=== PATIENT | male | born 1990 | race Caucasian/White ===

== ENCOUNTER 2023-10-05 10:35 | Emergency (ER) | payer OTHER ==
[2023-10-05] MEDS ORDERED: SODIUM CHLORIDE 0.9% 1,000 ML IV STA (11:09)
[2023-10-05] MEDS ORDERED: PANTOPRAZOLE 40 MG/10 ML VIAL IVP STA (11:09)
[2023-10-05] MEDS ORDERED: ONDANSETRON 4 MG/2 ML VIAL IVP STA (11:09)
[2023-10-05 11:29] VITALS: RESP 18; TEMP 97.9
[2023-10-05 11:40] LABS: Basophils % (A) 0 %; Eosinophils # (A) 0.3 k/uL (0-0.7); Eosinophils % (A) 4 %; HCT 39.9 % (39.0-53.0); HGB 13.3 gm/dL (13.0-17.5); Lymphocytes # (A) 1.1 k/uL (1.0-4.8); Lymphocytes % (A) 15 %; MCH 27.5 pg (25.0-35.0); MCHC 33.3 g/dL (31.0-37.0); MCV 82.5 fL (80.0-100.0); Monocytes # (A) 0.3 k/uL (0-1.0); Monocytes % (A) 4 %; Neutrophils # (A) 5.5 k/uL (1.3-7.7); Neutrophils % (A) 75 %; Platelet Count 488 k/uL (150-450); RBC 4.83 m/uL (4.30-5.90); RDW 14.2 % (11.5-15.5); WBC 7.3 k/uL (3.8-10.6)
[2023-10-05 11:55] LABS: Partial Thromboplastin Time 22.9 sec (22.0-30.0)
[2023-10-05 12:04] LABS: ALT 13 U/L (4-49); AST 20 U/L (17-59); African American GFR (CKD) >90 (>60 ml/min/1.73 sqM); Albumin 3.6 g/dL (3.5-5.0); Alkaline Phosphatase 88 U/L (38-126); Amylase 33 U/L (30-110); Anion Gap 13 mmol/L; Blood Urea Nitrogen 6 mg/dL (9-20); Calcium 8.9 mg/dL (8.4-10.2); Carbon Dioxide 26 mmol/L (22-30); Chloride 99 mmol/L (98-107); Glucose 82 mg/dL (74-99); Lipase 91 U/L (23-300); Non-African American GFR(CKD) >90 (>60 ml/min/1.73 sqM); Potassium 2.9 mmol/L (3.5-5.1); Sodium 138 mmol/L (137-145); Total Bilirubin 0.7 mg/dL (0.2-1.3); Total Protein 7.3 g/dL (6.3-8.2)
--- NOTE | 2023-10-05 12:25 | CT ---
EXAMINATION TYPE: CT abdomen pelvis w con DATE OF EXAM: 10/05/2023 COMPARISON: NONE HISTORY: 33-year-old male, abdominal pain, diarrhea, wt loss TECHNIQUE: Contiguous axial scanning of the abdomen and pelvis following administration of 100 ml Iso eileen 300 IV contrast. Delayed images through the kidneys and coronal/sagittal reconstructions perform ed. CT DLP: 846.2 mGycm Automated exposure control for dose reduction was used. FINDINGS: LUNG BASES: No significant abnormality is appreciated. LIVER/GB: Liver border line enlarged at 17.8 cm with diffuse low-attenuation. No focal lesion. Portal venous system is patent. No biliary ductal dilatation. Gallbladder within normal limits. PANCREAS: No significant abnormality is seen. SPLEEN: No significant abnormality is seen. ADRENALS: No significant abnormality is seen. KIDNEYS: No significant abnormality is seen. BOWEL: Mild circumferential wall thickening distal esophagus. There is long segment distal enteritis involving the ileum. There is mucosal breathing and wall thickening up to 5 mm with engorgement of t he mesenteric vessels. Mild wall thickening of the cecum and fluid within the right hemicolon. LYMPH NODES: Borderline to mildly enlarged lymph nodes clustered in the left mid abdominal mesentery measuring up to 1 cm short axis with mild malina mesentery. Additional lymph nodes clustered right mid to lower abdominal mesentery measuring up to 1.3 cm, coronal images 43 and 44. OTHER: No significant abnormality is seen. PELVIS: Prostate gland mildly enlarged at 4.5 cm. Bladder urine distended. No abnormal fluid collecti on in the pelvis. BONES: Bilateral L5 pars defects with grade 1 anterolisthesis at L5-S1. Mild degenerative disc diseas e here. IMPRESSION: 1. LONG SEGMENT MODERATE DISTAL ILEITIS WITH INFLAMMATORY BOWEL WALL THICKENING UP TO 5 MM. SOME CONT IGUOUS INFLAMMATORY BOWEL WALL THICKENING OF THE CECUM WELL. CORRELATE FOR INFECTIOUS ETIOLOGY OR INFLAMMATORY BOWEL DISEASE. NO ABSCESS OR FREE AIR. 2. SCATTERED BORDERLINE AND MILDLY ENLARGED MESENTERIC LYMPH NODES. THERE IS SOME ASSOCIATED MALINA ME SENTERY. FINDINGS MAY BE REACTIVE TO THE ENTERITIS OR COULD REFLECT A CONCURRENT MESENTERIC PANNICULI TIS. 3. Hepatic steatosis. Appropriate clinical management advised. Possible mild distal esophagitis. 4. Bilateral L5 pars defects and grade 1 anterolisthesis L5-S1.
[2023-10-05] MEDS ORDERED: POTASSIUM CHLORIDE ER 20 MEQ TAB.ER PO STA (12:50)
[2023-10-05] MEDS ORDERED: AMOXIC-POT CLAV 875-125MG 1 EACH TAB PO STA (12:51)
--- NOTE | 2023-10-05 13:02 | ED ---
General Adult HPI - General Chief complaint: Recheck/Abnormal Lab/Rx Stated complaint: Nausea,Weakness Time Seen by Provider: 10/05/23 11:01 Source: patient, RN notes reviewed, old records reviewed Mode of arrival: ambulatory Limitations: no limitations - History of Present Illness Initial comments: Patient is a 33-year-old male presents emergency Department complaining of near syncopal episode. States he was about to have a bowel movement at work when he extends to near syncopal episode while in the toilet. States he did not fully pass out. States his vision began to go black however past. States this has happened previously. Has been having diarrhea that is nonbloody for the last 3 weeks. Unknown source. Intermittent abdominal discomfort. Denies chest pain or shortness breath. No known fevers. Denies any nausea or emesis. No history of abdominal surgeries. No history of colonoscopy. No urinary complaints. Presents for further evaluation at this time. - Related Data Previous Rx's Medication Instructions Recorded Amoxic-Pot Clav 875-125Mg 1 tab PO Q12HR 7 Days #14 tab 10/05/23 [Augmentin 875-125] Potassium Chloride ER [K-Dur 20] 20 meq PO DAILY 4 Days #4 tab 10/05/23 Allergies Allergy/AdvReac Type Severity Reaction Status Date / Time Sulfa (Sulfonamide Allergy Unknown Verified 10/05/23 10:48 Antibiotics) Childhood Review of Systems ROS Statement: Those systems with pertinent positive or pertinent negative responses have been documented in the HPI. Review of Systems: CONST: Denies fever EYES: Denies blurry vision ENT: Denies nasal congestion C/V: Denies Chest pain RESP: Denies shortness of breath GI: Endorses Intermittent abdominal pain : Denies dysuria SKIN: Denies rash. MSK: Denies joint pain. NEURO: Denies headache ROS Other: All systems not noted in ROS Statement are negative. Past Medical History Past Medical History: No Reported History History of Any Multi-Drug Resistant Organisms: None Reported Past Surgical History: No Surgical Hx Reported Past Psychological History: ADD/ADHD Smoking Status: Never smoker Past Alcohol Use History: Rare Past Drug Use History: None Reported General Exam - General Exam Comments Initial Comments: General: Appears in no acute distress. HEAD: Normal with no signs of head trauma. EYES: PERRLA, EOMI, conjunctiva normal, no discharge. ENT: Hearing grossly intact, normal oropharynx. RESPIRATORY: Clear breath sounds bilaterally. No wheezes, rales, or rhonchi. C/V: Regular rate and rhythm. S1 and S2 auscultated, no edema, peripheral pulses 2+ and intact throughout ABD: Abdomen is soft, nondistended. Tender to palpation minimally in the left side. No guarding. No rebound tenderness. No peritoneal signs. EXT: Normal range of motion, no obvious deformity SKIN: No rashes or lesions observed on exposed skin. NEURO: Alert and oriented x 4. Limitations: no limitations Course Vital Signs 10/05/23 10/05/23 10:44 13:16 Temperature 97.9 F 97.9 F Pulse Rate 94 88 Respiratory 18 18 Rate Blood Pressure 130/90 132/88 O2 Sat by Pulse 98 98 Oximetry Medical Decision Making - Medical Decision Making Was pt. sent in by a medical professional or institution (, PA, OPERATING ROOM SPECIALIST, urgent care, hospital, or usp...) When possible be specific @ -No Did you speak to anyone other than the patient for history (EMS, parent, family, police, friend...)? What history was obtained from this source @ -No Did you review nursing and triage notes (agree or disagree)? Why? @ -I reviewed and agree with nursing and triage notes Were old charts reviewed (outside hosp., previous admission, EMS record, old EKG, old radiological studies, urgent care reports/EKG's, usp records)? Report findings @ -No old charts were reviewed Differential Diagnosis (chest pain, altered mental status, abdominal pain women, abdominal pain men, vaginal bleeding, weakness, fever, dyspnea, syncope, headache, dizziness, GI bleed, back pain, seizure, CVA, palpatations, mental health, musculoskeletal)? @ -Differential Abdominal Pain Men: Appendicitis, cholecystitis, diverticulosis, ischemic bowel, pancreatitis, hepatitis, UTI, gastroenteritis, AAA, incarcerated hernia, bowel obstruction, constipation, inflammatory bowel, hepatitis, peptic ulcer disease, splenic infarction, perforated viscus, testicular torsion, this is not meant to be an all-inclusive list EKG interpreted by me (3pts min.). @ -None done X-rays interpreted by me (1pt min.). @ -None done CT interpreted by me (1pt min.). @ -CT remarkable for nonspecific colitis/enteritis as well as ileitis. U/S interpreted by me (1pt. min.). @ -None done What testing was considered but not performed or refused? (CT, X-rays, U/S, labs)? Why? @ -None What meds were considered but not given or refused? Why? @ -None Did you discuss the management of the patient with other professionals (professionals i.e. DrJessa, PA, OPERATING ROOM SPECIALIST, lab, RT, psych nurse, social contact worker, java programming professor, teacher, first aid officer, caseworker protective services)? Give summary @ -No Was smoking cessation discussed for >3mins.? @ -No Was critical care preformed (if so, how long)? @ -No Were there social determinants of health that impacted care today? How? (Homelessness, low income, unemployed, alcoholism, drug addiction, t ransportation, low edu. Level, literacy, decrease access to med. care, custodial, rehab)? @ -No Was there de-escalation of care discussed even if they declined (Discuss DNR or withdrawal of care, Hospice)? DNR status @ -No What co-morbidities impacted this encounter? (DM, HTN, Smoking, COPD, CAD, Cancer, CVA, ARF, Chemo, Hep., AIDS, mental health diagnosis, sleep apnea, morbid obesity)? @ -None Was patient admitted / discharged? Hospital course, mention meds given and route, prescriptions, significant lab abnormalities, going to OR and other pertinent info. @ -Based on patient's presentation and physical exam, we'll obtain abdominal laboratory studies as well as CT abdomen and pelvis. Patient agreement this plan. He'll basically treated with IV fluids, Protonix, Zofran. Patient agreement this plan. Vital signs within acceptable limits. CT remarkable for enteritis and ileitis. Labs remarkable for mild hypokalemia of 2.9. Remainder of the labs within a cceptable limits. I discussed results with the patient. I did offer admission for the hypokalemia however he would like to go home. I believe this is reasonable. As symptoms have been ongoing for the last 3 weeks, we will cover for possible bacterial etiology for patient's enteritis. He will be started on Augmentin as well as potassium pills for multiple days. He will also receive potassium supplementation now. Patient agreement this plan. Strict return precautions discussed. Recommended follow up with GI and colonoscopy. I will provide the patient with a prescription for Augmentin, potassium chloride. I instructed the patient to follow up with their PCP in the next 1-3 days. I provided contact information for follow up with GI. I explained that the patient should return to the emergency department if they experience any worsening symptoms. Strict return precautions were discussed with the patient. The patient expressed understanding of these instructions. I answered all questions that the patient had. The patient was discharged home in good condition with their prescriptions and follow up information. Undiagnosed new problem with uncertain prognosis? @ -No Drug Therapy requiring intensive monitoring for toxicity (Heparin, Nitro, Insulin, Cardizem)? @ -No Were any procedures done? @ -No Diagnosis/symptom? @ -Enteritis, diarrhea, hypokalemia Acute, or Chronic, or Acute on Chronic? @ -Acute Uncomplicated (without systemic symptoms) or Complicated (systemic symptoms)? @ -Complicated Side effects of treatment? @ -No Exacerbation, Progression, or Severe Exacerbation? @ -No Poses a threat to life or bodily function? How? (Chest pain, USA, HI, pneumonia, PE, COPD, DKA, ARF, appy, cholecystitis, CVA, Diverticulitis, Homicidal, Suici kaley, threat to staff... and all critical care pts) @ -Unlikely - Lab Data Result diagrams: 10/05/23 11:20 10/05/23 11:20 Lab Results 10/05/23 10/05/23 10/05/23 Range/Units 11:09 11:20 11:20 WBC 7.3 (3.8-10.6) k/uL RBC 4.83 (4.30-5.90) m/uL Hgb 13.3 (13.0-17.5) gm/dL Hct 39.9 (39.0-53.0) % MCV 82.5 (80.0-100.0) fL MCH 27.5 (25.0-35.0) pg MCHC 33.3 (31.0-37.0) g/dL RDW 14.2 (11.5-15.5) % Plt Count 488 H (150-450) k/uL MPV 7.0 Neutrophils % 75 % Lymphocytes % 15 % Monocytes % 4 % Eosinophils % 4 % Basophils % 0 % Neutrophils # 5.5 (1.3-7.7) k/uL Lymphocytes # 1.1 (1.0-4.8) k/uL Monocytes # 0.3 (0-1.0) k/uL Eosinophils # 0.3 (0-0.7) k/uL Basophils # 0.0 (0-0.2) k/uL PT 11.0 (10.0-12.5) sec INR 1.0 (<1.2) APTT 22.9 (22.0-30.0) sec Sodium (137-145) mmol/L Potassium (3.5-5.1) mmol/L Chloride (98-107) mmol/L Carbon Dioxide (22-30) mmol/L Anion Gap mmol/L BUN (9-20) mg/dL Creatinine (0.66-1.25) mg/dL Est GFR (CKD-EPI)AfAm (>60 ml/min/1.73 sqM) Est GFR (CKD-EPI)NonAf (>60 ml/min/1.73 sqM) Glucose (74-99) mg/dL Plasma Lactic Acid Ulises (0.7-2.0) mmol/L Calcium (8.4-10.2) mg/dL Total Bilirubin (0.2-1.3) mg/dL AST (17-59) U/L ALT (4-49) U/L Alkaline Phosphatase (38-126) U/L Total Protein (6.3-8.2) g/dL Albumin (3.5-5.0) g/dL Amylase (30-110) U/L Lipase (23-300) U/L Urine Color Colorless Urine Appearance Clear (Clear) Urine pH 7.5 (5.0-8.0) Ur Specific Robards 1.047 H (1.001-1.035) Urine Protein Negative (Negative) Urine Glucose (UA) Negative (Negative) Urine Ketones 2+ H (Negative) Urine Blood Negative (Negative) Urine Nitrite Negative (Negative) Urine Bilirubin Negative (Negative) Urine Urobilinogen <2.0 (<2.0) mg/dL Ur Leukocyte Esterase Negative (Negative) 10/05/23 10/05/23 Range/Units 11:20 11:20 WBC (3.8-10.6) k/uL RBC (4.30-5.90) m/uL Hgb (13.0-17.5) gm/dL Hct (39.0-53.0) % MCV (80.0-100.0) fL MCH (25.0-35.0) pg MCHC (31.0-37.0) g/dL RDW (11.5-15.5) % Plt Count (150-450) k/uL MPV Neutrophils % % Lymphocytes % % Monocytes % % Eosinophils % % Basophils % % Neutrophils # (1.3-7.7) k/uL Lymphocytes # (1.0-4.8) k/uL Monocytes # (0-1.0) k/uL Eosinophils # (0-0.7) k/uL Basophils # (0-0.2) k/uL PT (10.0-12.5) sec INR (<1.2) APTT (22.0-30.0) sec Sodium 138 (137-145) mmol/L Potassium 2.9 L (3.5-5.1) mmol/L Chloride 99 (98-107) mmol/L Carbon Dioxide 26 (22-30) mmol/L Anion Gap 13 mmol/L BUN 6 L (9-20) mg/dL Creatinine 0.90 (0.66-1.25) mg/dL Est GFR (CKD-EPI)AfAm >90 (>60 ml/min/1.73 sqM) Est GFR (CKD-EPI)NonAf >90 (>60 ml/min/1.73 sqM) Glucose 82 (74-99) mg/dL Plasma Lactic Acid Ulises 0.9 (0.7-2.0) mmol/L Calcium 8.9 (8.4-10.2) mg/dL Total Bilirubin 0.7 (0.2-1.3) mg/dL AST 20 (17-59) U/L ALT 13 (4-49) U/L Alkaline Phosphatase 88 (38-126) U/L Total Protein 7.3 (6.3-8.2) g/dL Albumin 3.6 (3.5-5.0) g/dL Amylase 33 (30-110) U/L Lipase 91 (23-300) U/L Urine Color Urine Appearance (Clear) Urine pH (5.0-8.0) Ur Specific Robards (1.001-1.035) Urine Protein (Negative) Urine Glucose (UA) (Negative) Urine Ketones (Negative) Urine Blood (Negative) Urine Nitrite (Negative) Urine Bilirubin (Negative) Urine Urobilinogen (<2.0) mg/dL Ur Leukocyte Esterase (Negative) Disposition Clinical Impression: Enteritis, Hypokalemia, Diarrhea Disposition: HOME SELF-CARE Condition: Good Instructions (If sedation given, give patient instructions): Hypokalemia (ED), Enteritis (ED) Prescriptions: Amoxic-Pot Clav 875-125Mg [Augmentin 875-125] 1 tab PO Q12HR 7 Days #14 tab Potassium Chloride ER [K-Dur 20] 20 meq PO DAILY 4 Days #4 tab Is patient prescribed a controlled substance at d/c from ED?: No Referrals: Jefry Mike MD [Primary Care Provider] - 1-2 days Catarina Tobias MD [STAFF PHYSICIAN] - 1-2 days Time of Disposition: 12:45
[2023-10-05 13:34] VITALS: BP 132/88; PULSE 88
[2023-10-05 14:07] LABS: Appearance,Urine Clear (Clear); Bilirubin,Urine Negative (Negative); Blood,Urine Negative (Negative); Color,Urine Colorless; Glucose,Urine (UA) Negative (Negative); Ketones,Urine 2+ (Negative); Leukocyte Esterase,Urine Negative (Negative); Nitrite,Urine Negative (Negative); PH, Urine 7.5 (5.0-8.0); Protein,Urine Negative (Negative); Urobilinogen,Urine <2.0 mg/dL (<2.0)
[2023-10-05 14:19] LABS: Specific Gravity,Urine 1.047 (1.001-1.035)
--- NOTE | 2023-10-05 15:27 | ED ---
Medical Decision Making - Lab Data Result diagrams: 10/05/23 11:20 10/05/23 11:20 Lab Results 10/05/23 10/05/23 10/05/23 Range/Units 11:09 11:20 11:20 WBC 7.3 (3.8-10.6) k/uL RBC 4.83 (4.30-5.90) m/uL Hgb 13.3 (13.0-17.5) gm/dL Hct 39.9 (39.0-53.0) % MCV 82.5 (80.0-100.0) fL MCH 27.5 (25.0-35.0) pg MCHC 33.3 (31.0-37.0) g/dL RDW 14.2 (11.5-15.5) % Plt Count 488 H (150-450) k/uL MPV 7.0 Neutrophils % 75 % Lymphocytes % 15 % Monocytes % 4 % Eosinophils % 4 % Basophils % 0 % Neutrophils # 5.5 (1.3-7.7) k/uL Lymphocytes # 1.1 (1.0-4.8) k/uL Monocytes # 0.3 (0-1.0) k/uL Eosinophils # 0.3 (0-0.7) k/uL Basophils # 0.0 (0-0.2) k/uL PT 11.0 (10.0-12.5) sec INR 1.0 (<1.2) APTT 22.9 (22.0-30.0) sec Sodium (137-145) mmol/L Potassium (3.5-5.1) mmol/L Chloride (98-107) mmol/L Carbon Dioxide (22-30) mmol/L Anion Gap mmol/L BUN (9-20) mg/dL Creatinine (0.66-1.25) mg/dL Est GFR (CKD-EPI)AfAm (>60 ml/min/1.73 sqM) Est GFR (CKD-EPI)NonAf (>60 ml/min/1.73 sqM) Glucose (74-99) mg/dL Plasma Lactic Acid Ulises (0.7-2.0) mmol/L Calcium (8.4-10.2) mg/dL Total Bilirubin (0.2-1.3) mg/dL AST (17-59) U/L ALT (4-49) U/L Alkaline Phosphatase (38-126) U/L Total Protein (6.3-8.2) g/dL Albumin (3.5-5.0) g/dL Amylase (30-110) U/L Lipase (23-300) U/L Urine Color Colorless Urine Appearance Clear (Clear) Urine pH 7.5 (5.0-8.0) Ur Specific Dubois 1.047 H (1.001-1.035) Urine Protein Negative (Negative) Urine Glucose (UA) Negative (Negative) Urine Ketones 2+ H (Negative) Urine Blood Negative (Negative) Urine Nitrite Negative (Negative) Urine Bilirubin Negative (Negative) Urine Urobilinogen <2.0 (<2.0) mg/dL Ur Leukocyte Esterase Negative (Negative) 10/05/23 10/05/23 Range/Units 11:20 11:20 WBC (3.8-10.6) k/uL RBC (4.30-5.90) m/uL Hgb (13.0-17.5) gm/dL Hct (39.0-53.0) % MCV (80.0-100.0) fL MCH (25.0-35.0) pg MCHC (31.0-37.0) g/dL RDW (11.5-15.5) % Plt Count (150-450) k/uL MPV Neutrophils % % Lymphocytes % % Monocytes % % Eosinophils % % Basophils % % Neutrophils # (1.3-7.7) k/uL Lymphocytes # (1.0-4.8) k/uL Monocytes # (0-1.0) k/uL Eosinophils # (0-0.7) k/uL Basophils # (0-0.2) k/uL PT (10.0-12.5) sec INR (<1.2) APTT (22.0-30.0) sec Sodium 138 (137-145) mmol/L Potassium 2.9 L (3.5-5.1) mmol/L Chloride 99 (98-107) mmol/L Carbon Dioxide 26 (22-30) mmol/L Anion Gap 13 mmol/L BUN 6 L (9-20) mg/dL Creatinine 0.90 (0.66-1.25) mg/dL Est GFR (CKD-EPI)AfAm >90 (>60 ml/min/1.73 sqM) Est GFR (CKD-EPI)NonAf >90 (>60 ml/min/1.73 sqM) Glucose 82 (74-99) mg/dL Plasma Lactic Acid Ulises 0.9 (0.7-2.0) mmol/L Calcium 8.9 (8.4-10.2) mg/dL Total Bilirubin 0.7 (0.2-1.3) mg/dL AST 20 (17-59) U/L ALT 13 (4-49) U/L Alkaline Phosphatase 88 (38-126) U/L Total Protein 7.3 (6.3-8.2) g/dL Albumin 3.6 (3.5-5.0) g/dL Amylase 33 (30-110) U/L Lipase 91 (23-300) U/L Urine Color Urine Appearance (Clear) Urine pH (5.0-8.0) Ur Specific Dubois (1.001-1.035) Urine Protein (Negative) Urine Glucose (UA) (Negative) Urine Ketones (Negative) Urine Blood (Negative) Urine Nitrite (Negative) Urine Bilirubin (Negative) Urine Urobilinogen (<2.0) mg/dL Ur Leukocyte Esterase (Negative) - EKG Data -: EKG Interpreted by Me EKG Comments: 12-lead Electrocardiogram Interpretation Note EKG was reviewed and interpreted by myself. 12-lead ECG performed at 1112 is interpreted by me as revealing normal sinus rhythm at a rate of 70 beats per minute. [place] is normal. MD interval is 120 ms, QRS duration is 95 ms, QTc is 398 ms.. There were no ST or T wave abnormalities to suggest myocardial ischemia or injury. R wave progression across the precordium was satisfactory. By my interpretation this EKG is non-diagnostic for acute ischemia. Disposition Clinical Impression: Enteritis, Hypokalemia, Diarrhea Disposition: HOME SELF-CARE Condition: Good Instructions (If sedation given, give patient instructions): Hypokalemia (ED), Enteritis (ED) Prescriptions: Amoxic-Pot Clav 875-125Mg [Augmentin 875-125] 1 tab PO Q12HR 7 Days #14 tab Potassium Chloride ER [K-Dur 20] 20 meq PO DAILY 4 Days #4 tab Is patient prescribed a controlled substance at d/c from ED?: No Referrals: Jefry Mike MD [Primary Care Provider] - 1-2 days Catarina Tobias MD [STAFF PHYSICIAN] - 1-2 days
== END 2023-10-05 13:17 | disposition home or self-care (01) ==
LOC: EC 10:35
DX: R53.1 Weakness (principal); E87.6 Hypokalemia; K52.9 Noninfective gastroenteritis and colitis, unspecified; Z88.2 Allergy status to sulfonamides
CPT/HCPCS: 36415; 93005; 80053; 82150; 83605; 83690; 85025; 85610; 85730; 81003; 74177; 99285; 96374; 96361; C9113; Q9967

== ENCOUNTER → 2023-10-25 | Outpatient (CLI) | payer OTHER ==
--- NOTE | 2023-10-29 12:11 | CT ---
EXAMINATION TYPE: CT abdomen pelvis wo con CT DLP: 526.9 mGycm, Automated exposure control for dose reduction was used. DATE OF EXAM: 10/25/2023 7:11 PM COMPARISON: CT 10/05/2023 CLINICAL INDICATION:Male, 33 years old with history of K56.7 ILEUS, UNSPECIFIED; f/u ileus TECHNIQUE: Axial CT of the abdomen and pelvis. Sagittal and coronal reformats were created on a e[employer] workstation. Contrast used: mL of , (none if empty) Oral contrast used: with Oral Contrast (none if empty) FINDINGS: Exam is limited without IV contrast. LOWER CHEST: Unremarkable ABDOMEN LIVER: Unremarkable GALLBLADDER AND BILE DUCTS: Partially contracted gallbladder with possibly a small amount of sludge. No biliary dilatation. PANCREAS: Unremarkable. SPLEEN: Unremarkable. ADRENAL GLANDS: Unremarkable. KIDNEYS AND URETERS: No evidence of renal/ureteral calculus or hydronephrosis. No contour deforming r enal lesion. PELVIS BLADDER: Unremarkable REPRODUCTIVE: Unchanged mildly prominent prostate. ABDOMEN & PELVIS STOMACH AND BOWEL: Stomach is mildly distended with contrast and heterogeneous material, likely foods tuffs. Mildly thickened appearance of the gastric outlet, likely from nondistention/contraction. Duod enal sweep appears patent however appears unusually tortuous in its distal portion. A couple of duod enal diverticula are again seen, the larger 30 x 14 mm. Contrast traverses the more distal small patricio l loops and reaches the colon without evidence of obstruction. Once again the distal ileal wall appea rs thickened over a long segment; the wall had measured 5 mm previously, and measures similar to slig htly greater currently. There appears to be slightly less engorgement of the vasa recta however than before. There is oral contrast opacification within the cecal tip which extends lateral to the distal sigmoid colon, which does not show much in the way of wall thickening. The more distal colon however , including the right and most of the transverse colon, show diffuse wall thickening with suggestion of some mural fat deposition which seems increased from previous. Contrast passes this area without e vidence of obstruction. There is a more normal appearance of the distal colon, with a mild to moderat e of stool seen throughout the sigmoid and rectum. Appendix is not identified with certainty, however there is no inflammatory process seen in the pericecal region. PERITONEUM/RETROPERITONEUM: No evidence of pneumoperitoneum or free fluid. VASCULATURE: Circumaortic left renal vein. IVC caliber appears within normal limits. No significant a therosclerotic calcification of the aorta, no evidence of AAA. LYMPH NODES: No bulky abdominal pelvic adenopathy is seen. There are several mildly prominent mesente svetlana nodes redemonstrated, stable to slightly decreased, likely reactive. Mild malina mesentery appeara nce of the abdomen is again seen and slightly less prominent. SOFT TISSUE/ABDOMINAL WALL: Tiny fat-containing umbilical hernia. MUSCULOSKELETAL: No acute osseous abnormalities. Bilateral L5 pars defects again seen with stable gra de 1 anterolisthesis of L5 on S1 measuring 5.7 mm. IMPRESSION: 1. Long segment wall thickening of the distal ileum and proximal half of the colon, compatible with changes of ileocolitis; likely considerations include IBD/Crohn's and infectious causes. The extent i s likely not significantly different from before, with the colonic involvement more visible on today' s exam due to the contrast differences and some mural fat deposition in the wall. The vasa recta appe ars slightly less engorged, which may suggest some decreasing inflammation. Correlate with patient's symptoms. 2. Multiple mildly prominent mesenteric nodes and mild malina mesentery appearance of the abdomen, st able to slightly improved.
== END | disposition home or self-care (01) ==
LOC: RADCTMAIN 17:26
PROVIDERS: ATTEND Family Medicine
DX: K56.7 Ileus, unspecified (principal); K63.89 Other specified diseases of intestine
CPT/HCPCS: 74176